=== PATIENT | male | born 1960 | race Caucasian/White ===

== ENCOUNTER 2022-05-26 12:12 | Inpatient (IN) | payer BC ==
[2022-05-26 14:06] VITALS: BMI 25.1
[2022-05-26] MEDS ORDERED: MAGNESIUM CITRATE 300 ML BOTTLE PO PRN (14:32)
[2022-05-26] MEDS ORDERED: BENZOCAINE/MENTHOL (CHLORASEPTIC ) LOZENGE MM PRN (14:32)
[2022-05-26] MEDS ORDERED: ACETAMINOPHEN 325 MG TABLET (FP) PO PRN ×2 (14:32)
[2022-05-26] MEDS ORDERED: BISMUTH SUBSALICYLATE 524 MG/30 ML PO PRN (14:32)
[2022-05-26] MEDS ORDERED: LOPERAMIDE HCL 2 MG CAPSULE PO PRN (14:32)
[2022-05-26] MEDS ORDERED: MAGNESIUM HYDROX 2400MG/30ML ORAL SUSPENSION 30 ML CUP PO PRN (14:32)
[2022-05-26] MEDS ORDERED: NICOTINE 10 MG CARTRIDGE (INHALER) IH PRN (14:32)
[2022-05-26] MEDS ORDERED: IBUPROFEN 600 MG TABLET (FP) PO PRN (14:32)
[2022-05-26] MEDS ORDERED: IBUPROFEN 400 MG TABLET (FP) PO PRN (14:32)
[2022-05-26] MEDS ORDERED: DICYCLOMINE HCL 10 MG CAPSULE PO PRN (14:32)
[2022-05-26] MEDS ORDERED: ONDANSETRON *ODT* 4 MG TABLET SL PRN (14:32)
[2022-05-26] MEDS ORDERED: MAG HYDROX/AL HYDROX/SIMETH 30 ML UNIT-DOSE CUP PO PRN (14:32)
[2022-05-26 17:03] LABS: HEMATOCRIT 38.8 % (35.4-49); HEMOGLOBIN 12.9 GM/dL (11.7-16.9); MCH 31.9 pg (25.7-33.7); MCHC 33.3 g/dl (32.0-35.9); MEAN CELL VOLUME 95.7 fl (80-96); MEAN PLT VOLUME 8.8 fl (7.5-11.1); PLATELET COUNT 254 10^3/uL (134-434); RBC 4.06 M/mm3 (4.00-5.60); WHITE BLOOD COUNT 6.8 K/mm3 (4.0-10.0)
[2022-05-26] MEDS: PRENATAL VITAMINS W/ FOLIC ACID TABLET (FP) PO SCH (18:43)
[2022-05-26] MEDS: DOXYCYCLINE HYCLATE 100 MG TABLET PO SCH (18:45)
[2022-05-26] MEDS: hydrOXYzine PAMOATE 25 MG CAPSULE (FP) PO SCH ×2 (18:45→22:17)
[2022-05-26] MEDS: NICOTINE 14 MG/24 HOURS TOPICAL PATCH TD SCH (18:45)
[2022-05-26] MEDS: diazePAM 5 MG TABLET PO SCH ×2 (18:45→22:17)
[2022-05-26 19:24] LABS: ALBUMIN 3.4 g/dl (3.4-5.0); BLOOD UREA NITROGEN 16.7 mg/dL (7-18); CALCIUM 8.5 mg/dL (8.5-10.1)
[2022-05-26 19:26] LABS: CREATININE 0.8 mg/dL (0.55-1.3)
[2022-05-26 19:29] LABS: BILIRUBIN,TOTAL 0.3 mg/dL (0.2-1); TOT PROT 7.6 g/dl (6.4-8.2)
[2022-05-26] MEDS: MELATONIN 5 MG TABLETS PO SCH (22:17)
[2022-05-26] MEDS: METHOCARBAMOL 500 MG TABLET PO PRN (22:17)
[2022-05-26] MEDS: THIAMINE HCL 100 MG TABLET (FP) PO SCH (22:17)
[2022-05-27] MEDS: diazePAM 5 MG TABLET PO SCH ×4 (06:22→22:18)
[2022-05-27] MEDS: diazePAM 5 MG TABLET PO PRN (07:22)
[2022-05-27] MEDS: METHOCARBAMOL 500 MG TABLET PO PRN (07:23)
[2022-05-27] MEDS: hydrOXYzine PAMOATE 25 MG CAPSULE (FP) PO SCH ×5 (07:23→22:18)
[2022-05-27] MEDS ORDERED: cloNIDine HCL 0.1 MG TABLET PO ONE (07:26)
[2022-05-27] MEDS ORDERED: methaDONE HCL 10 MG TABLET PO SCH (10:00)
[2022-05-27] MEDS: PANTOPRAZOLE 20 MG TABLET PO SCH (10:27)
[2022-05-27] MEDS: amLODIPine BESYLATE 5 MG TABLET (FP) PO SCH (10:27)
[2022-05-27] MEDS: DOXYCYCLINE HYCLATE 100 MG TABLET PO SCH ×2 (10:27→18:18)
[2022-05-27] MEDS: PRENATAL VITAMINS W/ FOLIC ACID TABLET (FP) PO SCH (10:27)
[2022-05-27] MEDS: NICOTINE 14 MG/24 HOURS TOPICAL PATCH TD SCH (10:29)
[2022-05-27] MEDS ORDERED: methaDONE HCL 10 MG TABLET ONE (10:41)
[2022-05-27] MEDS ORDERED: methaDONE HCL 40 MG DISPERSABLE TABLET ONE (10:41)
[2022-05-27] MEDS ORDERED: methaDONE 80 MG, methaDONE 20 MG PO ONE (10:45)
[2022-05-27 12:32] LABS: HIV INTERPRETATION NEGATIVE (NEGATIVE)
[2022-05-27] MEDS: MELATONIN 5 MG TABLETS PO SCH (22:18)
[2022-05-27] MEDS: THIAMINE HCL 100 MG TABLET (FP) PO SCH (22:18)
[2022-05-28] MEDS ORDERED: methaDONE HCL 40 MG DISPERSABLE TABLET ONE (04:45)
[2022-05-28] MEDS ORDERED: methaDONE HCL 10 MG TABLET ONE (04:45)
[2022-05-28] MEDS: methaDONE 80 MG, methaDONE 20 MG PO SCH (05:36)
[2022-05-28] MEDS: diazePAM 5 MG TABLET PO SCH ×3 (05:37→22:09)
[2022-05-28] MEDS: hydrOXYzine PAMOATE 25 MG CAPSULE (FP) PO SCH ×5 (05:37→22:10)
[2022-05-28] MEDS: amLODIPine BESYLATE 5 MG TABLET (FP) PO SCH (10:27)
[2022-05-28] MEDS: PANTOPRAZOLE 20 MG TABLET PO SCH (10:27)
[2022-05-28] MEDS: NICOTINE 14 MG/24 HOURS TOPICAL PATCH TD SCH (10:28)
[2022-05-28] MEDS: PRENATAL VITAMINS W/ FOLIC ACID TABLET (FP) PO SCH (10:28)
[2022-05-28] MEDS: DOXYCYCLINE HYCLATE 100 MG TABLET PO SCH ×2 (10:28→17:53)
[2022-05-28] MEDS ORDERED: PENICILLIN G BENZATHINE 2,400,000 UNIT/4 ML PFS IM ONE (16:45)
[2022-05-28] MEDS: diazePAM 5 MG TABLET PO PRN (17:53)
[2022-05-28] MEDS ORDERED: CARBAMIDE PEROXIDE 6.5% OTIC 15 ML BOTTLE AU SCH (22:00)
[2022-05-28] MEDS ORDERED: cloNIDine HCL 0.1 MG TABLET PO ONE (22:03)
[2022-05-28] MEDS: MELATONIN 5 MG TABLETS PO SCH (22:10)
[2022-05-28] MEDS: THIAMINE HCL 100 MG TABLET (FP) PO SCH (22:10)
[2022-05-29] MEDS ORDERED: methaDONE HCL 40 MG DISPERSABLE TABLET ONE (04:47)
[2022-05-29] MEDS ORDERED: methaDONE HCL 10 MG TABLET ONE (04:47)
[2022-05-29] MEDS: methaDONE 80 MG, methaDONE 20 MG PO SCH (05:39)
[2022-05-29] MEDS: diazePAM 5 MG TABLET PO SCH ×2 (05:39→17:54)
[2022-05-29] MEDS: hydrOXYzine PAMOATE 25 MG CAPSULE (FP) PO SCH ×5 (05:40→22:23)
[2022-05-29] MEDS: diazePAM 5 MG TABLET PO PRN (09:00)
[2022-05-29] MEDS: DOXYCYCLINE HYCLATE 100 MG TABLET PO SCH ×2 (10:31→17:54)
[2022-05-29] MEDS: PRENATAL VITAMINS W/ FOLIC ACID TABLET (FP) PO SCH (10:31)
[2022-05-29] MEDS: amLODIPine BESYLATE 5 MG TABLET (FP) PO SCH (10:31)
[2022-05-29] MEDS: PANTOPRAZOLE 20 MG TABLET PO SCH (10:31)
[2022-05-29] MEDS: NICOTINE 14 MG/24 HOURS TOPICAL PATCH TD SCH (10:33)
[2022-05-29 21:45] VITALS: TEMP 97.5
[2022-05-29] MEDS: THIAMINE HCL 100 MG TABLET (FP) PO SCH (22:23)
[2022-05-29] MEDS: MELATONIN 5 MG TABLETS PO SCH (22:23)
[2022-05-30] MEDS ORDERED: methaDONE HCL 40 MG DISPERSABLE TABLET ONE (04:34)
[2022-05-30] MEDS ORDERED: methaDONE HCL 10 MG TABLET ONE (04:34)
[2022-05-30] MEDS: hydrOXYzine PAMOATE 25 MG CAPSULE (FP) PO SCH ×2 (05:28→10:31)
[2022-05-30] MEDS: methaDONE 80 MG, methaDONE 20 MG PO SCH (05:28)
[2022-05-30] MEDS ORDERED: diazePAM 5 MG TABLET PO ONE (06:00)
[2022-05-30 09:49] VITALS: BP 142/67; PULSE 78
[2022-05-30] MEDS: NICOTINE 14 MG/24 HOURS TOPICAL PATCH TD SCH (10:29)
[2022-05-30] MEDS: PANTOPRAZOLE 20 MG TABLET PO SCH (10:31)
[2022-05-30] MEDS: amLODIPine BESYLATE 5 MG TABLET (FP) PO SCH (10:31)
[2022-05-30] MEDS: DOXYCYCLINE HYCLATE 100 MG TABLET PO SCH (10:31)
[2022-05-30] MEDS: PRENATAL VITAMINS W/ FOLIC ACID TABLET (FP) PO SCH (10:31)
== END 2022-05-30 11:49 | disposition home or self-care (01) | DRG 773 ==
LOC: YASAS 12:12 → Y3N 15:45
PROVIDERS: ADMIT Allergy & Immunology; ATTEND Surgery
PROC: HZ2ZZZZ Detoxification Services for Substance Abuse Treatment (ICD-10-PCS; principal; 2022-05-26)
DX: F10.230 Alcohol dependence with withdrawal, uncomplicated (principal); F11.20 Opioid dependence, uncomplicated; F14.20 Cocaine dependence, uncomplicated; F12.20 Cannabis dependence, uncomplicated; F17.210 Nicotine dependence, cigarettes, uncomplicated; F31.9 Bipolar disorder, unspecified; L03.114 Cellulitis of left upper limb; A53.9 Syphilis, unspecified; I10 Essential (primary) hypertension; Z87.11 Personal history of peptic ulcer disease
CPT/HCPCS: 36415; 80053; 85027; 86593; 86780; 87389; 93005; 93010; C9803-CS; J0735; U0003; U0005

== ENCOUNTER 2023-11-25 13:16 | Inpatient (IN) | payer OTHER ==
[2023-11-25 13:36] VITALS: BMI 28.8
[2023-11-25] MEDS ORDERED: BENZOCAINE/MENTHOL (CHLORASEPTIC ) LOZENGE MM PRN (14:17)
[2023-11-25] MEDS ORDERED: DICYCLOMINE HCL 10 MG CAPSULE PO PRN (14:17)
[2023-11-25] MEDS ORDERED: NALOXONE HCL 0.4 MG/ML VIAL IM PRN (14:17)
[2023-11-25] MEDS ORDERED: IBUPROFEN 400 MG TABLET (FP) PO PRN (14:17)
[2023-11-25] MEDS ORDERED: ONDANSETRON *ODT* 4 MG TABLET SL PRN (14:17)
[2023-11-25] MEDS ORDERED: POLYETHYLENE GLYCOL (HEALTHYLAX) 3350 17 GM PACKET PO PRN (14:17)
[2023-11-25] MEDS ORDERED: BISMUTH SUBSALICYLATE 262 MG/15 ML BTL PO PRN (14:17)
[2023-11-25] MEDS ORDERED: NALOXONE HCL (KLOXXADO) 8 MG SPRAY NS PRN (14:17)
[2023-11-25] MEDS ORDERED: LOPERAMIDE HCL 2 MG CAPSULE PO PRN (14:17)
[2023-11-25] MEDS ORDERED: BENZONATATE 200 MG CAPSULE PO PRN (14:17)
[2023-11-25] MEDS ORDERED: IBUPROFEN 600 MG TABLET (FP) PO PRN (14:17)
[2023-11-25] MEDS ORDERED: MAGNESIUM HYDROX 2400MG/30ML ORAL SUSPENSION 30 ML CUP PO PRN (14:17)
[2023-11-25] MEDS ORDERED: ACETAMINOPHEN 325 MG TABLET (FP) PO PRN (14:17)
[2023-11-25] MEDS ORDERED: chlordiazePOXIDE HCL 25 MG CAPSULE PO PRN (14:17)
[2023-11-25] MEDS ORDERED: guaiFENesin 600 MG TABLET.ER (FP) PO PRN (14:17)
[2023-11-25] MEDS: NICOTINE 21 MG/24 HOURS TOPICAL PATCH TD SCH (14:46)
[2023-11-25] MEDS: PRENATAL VITAMINS W/ FOLIC ACID TABLET (FP) PO SCH (14:46)
[2023-11-25] MEDS: chlordiazePOXIDE HCL 25 MG CAPSULE PO SCH (17:38)
[2023-11-25] MEDS: THIAMINE HCL 100 MG TABLET (FP) PO SCH (22:32)
[2023-11-25] MEDS: MELATONIN 5 MG TABLETS PO SCH (22:33)
[2023-11-26] MEDS: methaDONE HCL 40 MG DISPERSABLE TABLET PO SCH (06:40)
[2023-11-26] MEDS: amLODIPine BESYLATE 5 MG TABLET (FP) PO SCH (10:13)
[2023-11-26 11:37] LABS: HEMATOCRIT 41.8 % (35.4-49); HEMOGLOBIN 13.7 GM/dL (11.7-16.9); MCH 29.2 pg (25.7-33.7); MCHC 32.7 g/dl (32.0-35.9); MEAN CELL VOLUME 89.1 fl (80-96); MEAN PLT VOLUME 8.9 fl (7.5-11.1); PLATELET COUNT 305 10^3/uL (134-434); RBC 4.69 M/mm3 (4.00-5.60); RDW 16.6 % (11.9-15.9); WHITE BLOOD COUNT 7.1 K/mm3 (4.0-10.0)
[2023-11-26 11:44] LABS: CHLORIDE 106 mmol/L (98-107); POTASSIUM 4.1 mmol/L (3.5-5.1); SODIUM 142 mmol/L (136-145)
[2023-11-26 11:46] LABS: ALBUMIN 2.8 g/dl (3.4-5.0); ANION GAP 7 mmol/L (4-13); BLOOD UREA NITROGEN 18.7 mg/dL (7-18); CO2 29 mmol/L (21-32); GLUCOSE,RANDOM 107 mg/dL (74-106)
[2023-11-26 11:49] LABS: CREATININE 0.9 mg/dL (0.55-1.3); SGOT/AST 24 U/L (15-37); SGPT/ALT 23 U/L (13-61)
[2023-11-26 11:51] LABS: BILIRUBIN,TOTAL 0.6 mg/dL (0.2-1); TOT PROT 7.8 g/dl (6.4-8.2)
[2023-11-26 11:52] LABS: ALK PHOS 73 U/L (45-117)
[2023-11-26] MEDS: PANTOPRAZOLE 40 MG TABLET PO SCH (13:23)
[2023-11-26] MEDS: hydrOXYzine PAMOATE 25 MG CAPSULE (FP) PO PRN (17:43)
[2023-11-26] MEDS: METHOCARBAMOL 500 MG TABLET PO PRN (17:43)
[2023-11-26] MEDS: FLUOCINONIDE 0.05% CREAM (15 GM TUBE) TP SCH (22:12)
[2023-11-27] MEDS: chlordiazePOXIDE HCL 25 MG CAPSULE PO SCH (05:40)
[2023-11-27] MEDS ORDERED: cloNIDine HCL 0.1 MG TABLET ONE (18:49)
[2023-11-27] MEDS: cloNIDine HCL 0.1 MG TABLET PO ONE (18:54)
[2023-11-28] MEDS: chlordiazePOXIDE HCL 10 MG CAPSULE PO SCH (05:39)
[2023-11-28] MEDS: LACTULOSE 20 GM/30 ML UDC (FOR ORAL USE ONLY) PO SCH (10:28)
[2023-11-28] MEDS: MAG HYDROX/AL HYDROX/SIMETH 30 ML UNIT-DOSE CUP PO PRN (20:27)
[2023-11-28] MEDS: chlordiazePOXIDE HCL 10 MG CAPSULE PO PRN (21:06)
[2023-11-28] MEDS: cloNIDine HCL 0.1 MG TABLET PO ONE (22:13)
[2023-11-29] MEDS: chlordiazePOXIDE HCL 10 MG CAPSULE PO SCH (05:38)
[2023-11-29] MEDS: amLODIPine BESYLATE 10 MG TABLET (FP) PO SCH (10:19)
[2023-11-30] MEDS: chlordiazePOXIDE HCL 10 MG CAPSULE PO ONE (05:20)
[2023-11-30 09:22] VITALS: BP 125/66; PULSE 74; RESP 18; TEMP 97.5
== END 2023-11-30 10:22 | disposition home or self-care (01) | DRG 773 ==
LOC: YASAS 13:16 → Y6N 14:19
PROVIDERS: ADMIT Allergy & Immunology; ATTEND Surgery
PROC: HZ2ZZZZ Detoxification Services for Substance Abuse Treatment (ICD-10-PCS; principal; 2023-11-25)
DX: F10.230 Alcohol dependence with withdrawal, uncomplicated (principal); F11.20 Opioid dependence, uncomplicated; F31.9 Bipolar disorder, unspecified; Z72.0 Tobacco use; E72.20 Disorder of urea cycle metabolism, unspecified; I10 Essential (primary) hypertension; Z86.11 Personal history of tuberculosis; Z87.11 Personal history of peptic ulcer disease; Z86.19 Personal history of other infectious and parasitic diseases
CPT/HCPCS: 0241U-QW; 36415; 71045-TC-FY; 71046-TC-FY; 76705-TC; 80053; 80307; 82140; 83690; 83735; 83880; 84484; 85025; 85027; 86593; 86780; 87635; 87811; 93005; 93010; 99283-25; 99285-25; J0131

== ENCOUNTER 2023-11-27 11:32 | Emergency (ER) | payer OTHER ==
[2023-11-27 12:15] VITALS: BMI 30.1
[2023-11-27 13:46] LABS: BASO % 0.7 % (0-2.0); HEMATOCRIT 42.4 % (35.4-49); LYMPH % 32.2 % (8-40); MCH 29.2 pg (25.7-33.7); MCHC 33.1 g/dl (32.0-35.9); MEAN CELL VOLUME 88.3 fl (80-96); MEAN PLT VOLUME 8.3 fl (7.5-11.1); MONO % 12.2 % (3.8-10.2); NEUT % 52.9 % (42.8-82.8); PLATELET COUNT 291 10^3/uL (134-434); WHITE BLOOD COUNT 7.4 K/mm3 (4.0-10.0)
[2023-11-27 14:15] LABS: POTASSIUM 5.2 mmol/L (3.5-5.1)
[2023-11-27 14:23] LABS: ALBUMIN 2.8 g/dl (3.4-5.0); BLOOD UREA NITROGEN 18.6 mg/dL (7-18); CALCIUM 8.5 mg/dL (8.5-10.1)
[2023-11-27 14:28] LABS: BILIRUBIN,TOTAL 0.5 mg/dL (0.2-1); TOT PROT 7.8 g/dl (6.4-8.2)
[2023-11-27 15:56] VITALS: BP 157/82; PULSE 68; RESP 18; TEMP 98.4
== END 2023-11-27 16:40 | disposition home or self-care (01) ==
LOC: JER 11:32
DX: F10.239 Alcohol dependence with withdrawal, unspecified (principal); E72.20 Disorder of urea cycle metabolism, unspecified; R61 Generalized hyperhidrosis; F41.9 Anxiety disorder, unspecified; R51.9 Headache, unspecified; Y90.9 Presence of alcohol in blood, level not specified
CPT/HCPCS: 36415; 80053; 82140; 85025; 99283-25

== ENCOUNTER 2023-11-27 19:17 | Emergency (ER) | payer OTHER ==
[2023-11-27] MEDS ORDERED: ONDANSETRON 4 MG/2 ML VIAL IVPUSH ONE (19:46)
[2023-11-27] MEDS ORDERED: FAMOTIDINE 20 MG/50 ML IVPB 20 MG/50 ML MG IVPB ONE ×2 (19:46→20:01)
[2023-11-27] MEDS ORDERED: ACETAMINOPHEN 1000 MG/100 ML BAG IVPB ONE (19:46)
[2023-11-27] MEDS ORDERED: ACETAMINOPHEN INJECTION 100 ML IVPB ONE (20:00)
[2023-11-27] MEDS ORDERED: ONDANSETRON 4 MG/2 ML VIAL ONE (20:01)
[2023-11-27] MEDS ORDERED: MAG HYDROX/AL HYDROX/SIMETH 30 ML UNIT-DOSE CUP PO ONE (20:02)
[2023-11-27] MEDS ORDERED: PANTOPRAZOLE SODIUM 40 MG VIAL IVPUSH ONE (20:13)
[2023-11-27 20:38] VITALS: BMI 21.2
[2023-11-27] MEDS ORDERED: MAG HYDROX/AL HYDROX/SIMETH 30 ML UNIT-DOSE CUP ONE (21:02)
[2023-11-27] MEDS ORDERED: PANTOPRAZOLE SODIUM 40 MG VIAL ONE (21:12)
[2023-11-27 21:13] LABS: BASO % 0.8 % (0-2.0); EOS % 0.3 % (0-4.5); HEMATOCRIT 45.1 % (35.4-49); HEMOGLOBIN 14.6 GM/dL (11.7-16.9); LYMPH % 7.2 % (8-40); MCH 28.7 pg (25.7-33.7); MCHC 32.3 g/dl (32.0-35.9); MEAN CELL VOLUME 88.9 fl (80-96); MEAN PLT VOLUME 8.6 fl (7.5-11.1); MONO % 2.9 % (3.8-10.2); NEUT % 88.8 % (42.8-82.8); PLATELET COUNT 344 10^3/uL (134-434); RBC 5.07 M/mm3 (4.00-5.60); RDW 16.6 % (11.9-15.9); WHITE BLOOD COUNT 12.4 K/mm3 (4.0-10.0)
[2023-11-27] MEDS ORDERED: SUCRALFATE 1 GM TABLET (FP) ONE (21:14)
[2023-11-27 21:33] LABS: POTASSIUM 3.5 mmol/L (3.5-5.1)
[2023-11-27 21:35] LABS: CALCIUM 8.7 mg/dL (8.5-10.1)
[2023-11-27 21:36] LABS: BLOOD UREA NITROGEN 18.8 mg/dL (7-18); MAGNESIUM 1.8 mg/dL (1.8-2.4)
[2023-11-27 21:39] LABS: BILIRUBIN,TOTAL 0.5 mg/dL (0.2-1); CREATININE 1.1 mg/dL (0.55-1.3); TOT PROT 9.2 g/dl (6.4-8.2)
[2023-11-27 21:44] LABS: N-TERMINAL BNP 147.9 pg/ml (5-125)
[2023-11-27] MEDS ORDERED: LACTATED RINGERS SOLUTION 1000 ML INFUS.BAG IV ONE (21:45)
[2023-11-27 21:46] LABS: ALBUMIN 3.4 g/dl (3.4-5.0)
[2023-11-27] MEDS ORDERED: SUCRALFATE 1 GM TABLET (FP) PO ONE (22:00)
[2023-11-27] MEDS ORDERED: PENICILLIN G BENZATHINE 2,400,000 UNIT/4 ML PFS IM ONE ×2 (22:00→22:07)
[2023-11-27] MEDS ORDERED: morphine CARPU-JECT 4 MG/1 ML DISP.SYRIN IVPUSH ONE (22:07)
[2023-11-27] MEDS ORDERED: morphine CARPU-JECT 2 MG/1 ML DISP.SYRIN IVPUSH ONE (22:09)
[2023-11-27] MEDS ORDERED: SODIUM CHLORIDE 0.9% 500 ML INFUS.BAG IV ONE (22:32)
[2023-11-27] MEDS ORDERED: amLODIPine BESYLATE 5 MG TABLET (FP) PO ONE (23:18)
[2023-11-27 23:23] VITALS: BP 186/114; PULSE 96; RESP 23; TEMP 97.6
[2023-11-27] MEDS ORDERED: amLODIPine BESYLATE 5 MG TABLET (FP) ONE (23:30)
== END 2023-11-28 01:00 | disposition home or self-care (01) ==
LOC: JER 19:17
PROC: 3E033GC Introduction of Other Therapeutic Substance into Peripheral Vein, Percutaneous Approach (ICD-10-PCS; principal; 2023-11-27)
PROC: 3E033NZ Introduction of Analgesics, Hypnotics, Sedatives into Peripheral Vein, Percutaneous Approach (ICD-10-PCS; 2023-11-27)
PROC: 3E033GC Introduction of Other Therapeutic Substance into Peripheral Vein, Percutaneous Approach (ICD-10-PCS; 2023-11-27)
PROC: 3E033GC Introduction of Other Therapeutic Substance into Peripheral Vein, Percutaneous Approach (ICD-10-PCS; 2023-11-27)
PROC: 3E033GC Introduction of Other Therapeutic Substance into Peripheral Vein, Percutaneous Approach (ICD-10-PCS; 2023-11-27)
PROC: 3E02329 Introduction of Other Anti-infective into Muscle, Percutaneous Approach (ICD-10-PCS; 2023-11-27)
DX: R10.13 Epigastric pain (principal); R11.10 Vomiting, unspecified; Z20.822 Contact with and (suspected) exposure to COVID-19
CPT/HCPCS: 0241U-QW; 36415; 71045-TC-FY; 76705-TC; 80053; 83690; 83735; 83880; 84484; 85025; 93005; 93010; 99285-25